=== PATIENT | male | born 1990 | race Caucasian/White ===

== ENCOUNTER 2018-05-31 06:23 | Emergency (ER) | payer SELFPAY ==
[2018-05-31] MEDS ORDERED: ALBUTEROL 2.5 MG/3 ML NEB SOL ONE (06:55)
[2018-05-31] MEDS ORDERED: IPRATROPIUM BROM 0.5MG/2.5ML ONE (06:55)
[2018-05-31] MEDS ORDERED: predniSONE 20 MG TAB ONE (06:55)
--- NOTE | 2018-05-31 07:55 | EDPHYS ---
Physician Documentation [facility] Name: Jony Flores Age: 28 yrs Sex: Male : 1990 Arrival Date: 05/31/2018 Time: 06:27 Bed 8 Private MD: ED Physician Cristobal William HPI: 05/31 07:02 This 28 yrs old Male presents to ER via Ambulatory with complaints of Asthma kb Exacerbation. 07:02 The patient presents to the emergency department with wheezing, Current therapy: kb albuterol inhaler. Onset: The symptoms/episode began/occurred this morning. Modifying factors: The symptoms are alleviated by nothing, the symptoms are aggravated by nothing. Associated signs and symptoms: The patient has no apparent associated signs or symptoms. Severity of symptoms: At their worst the symptoms were moderate in the emergency department the symptoms are unchanged. The patient has experienced similar episodes in the past. The patient has not recently seen a physician. Pt states he woke up having an asthma attack. Normally uses albuterol inhaler, but he couldn't find it this morning. Historical: - Allergies: 06:40 No Known Allergies; jd3 - Home Meds: 06:40 Albuterol Inhl [Active]; jd3 - PMHx: 06:40 Asthma; jd3 - PSHx: 06:40 None; jd3 - Immunization history:: Adult Immunizations up to date. - Social history:: Smoking status: Patient uses tobacco products, denies chronic smoking, but will smoke occasionally. - Ebola Screening: : Patient negative for fever greater than or equal to 101.5 degrees Fahrenheit, and additional compatible Ebola Virus Disease symptoms. ROS: 07:01 Constitutional: Negative for fever, chills, and weight loss, ENT: Negative for injury, kb pain, and discharge, Neck: Negative for injury, pain, and swelling, Cardiovascular: Negative for chest pain, palpitations, and edema, Abdomen/GI: Negative for abdominal pain, nausea, vomiting, diarrhea, and constipation, Back: Negative for injury and pain, MS/Extremity: Negative for injury and deformity, Skin: Negative for injury, rash, and discoloration, Neuro: Negative for headache, weakness, numbness, tingling, and seizure. 07:01 Respiratory: Positive for shortness of breath, Negative for cough, dyspnea on exertion, hemoptysis, orthopnea, pleurisy, sputum production. Exam: 07:01 Constitutional: This is a well developed, well nourished patient who is awake, alert, kb and in no acute distress. Head/Face: Normocephalic, atraumatic. Chest/axilla: Normal chest wall appearance and motion. Nontender with no deformity. No lesions are appreciated. Cardiovascular: Regular rate and rhythm with a normal S1 and S2. No gallops, murmurs, or rubs. Normal PMI, no JVD. No pulse deficits. Respiratory: Lungs have equal breath sounds bilaterally, clear to auscultation and percussion. No rales, rhonchi or wheezes noted. No increased work of breathing, no retractions or nasal flaring. Abdomen/GI: Soft, non-tender, with normal bowel sounds. No distension or tympany. No guarding or rebound. No evidence of tenderness throughout. Back: No spinal tenderness. No costovertebral tenderness. Full range of motion. Skin: Warm, dry with normal turgor. Normal color with no rashes, no lesions, and no evidence of cellulitis. MS/ Extremity: Pulses equal, no cyanosis. Neurovascular intact. Full, normal range of motion. Neuro: Awake and alert, GCS 15, oriented to person, place, time, and situation. Cranial nerves II-XII grossly intact. Motor strength 5/5 in all extremities. Sensory grossly intact. Cerebellar exam normal. Normal gait. Vital Signs: 06:40 BP 138 / 69; Pulse 78; Resp 20 S; Temp 97.6(O); Pulse Ox 98% on R/A; Weight 70.31 kg jd3 (R); Height 6 ft. 0 in. (182.88 cm) (R); Pain 0/10; 07:49 BP 121 / 76; Pulse 82; Resp 18; Pulse Ox 100% on R/A; sv 08:08 BP 115 / 73; Pulse 80; Resp 18; Pulse Ox 100% ; sv 06:40 Body Mass Index 21.02 (70.31 kg, 182.88 cm) jd3 MDM: 06:36 Patient medically screened. kb 07:01 Data reviewed: vital signs, nurses notes. Data interpreted: Pulse oximetry: on room air kb is 98 %. Interpretation: normal. 07:54 Counseling: I had a detailed discussion with the patient and/or guardian regarding: the kb historical points, exam findings, and any diagnostic results supporting the discharge/admit diagnosis, the need for outpatient follow up, a family practitioner, to return to the emergency department if symptoms worsen or persist or if there are any questions or concerns that arise at home. Response to treatment: the patient's symptoms have resolved after treatment. Administered Medications: 06:51 Drug: predniSONE 40 mg Route: PO; jd3 07:19 Follow up: Response: No adverse reaction sv 06:51 Drug: DuoNeb (3:1) (2.5 mg - 0.5 mg) 3 ml Route: Nebulizer; jd3 07:19 Follow up: Response: No adverse reaction sv Disposition: 08:54 Co-signature as Attending Physician, Cristobal William MD I agree with the assessment and kdr plan of care. Disposition: 05/31/18 07:54 Discharged to Home. Impression: Unspecified asthma with (acute) exacerbation. - Condition is Stable. - Discharge Instructions: Asthma, Adult, [id number]. - Prescriptions for Prednisone 20 mg Oral Tablet - take 1 tablet by ORAL route once daily for 5 days; 5 tablet. Albuterol Sulfate 90 mcg/actuation - inhale 1-2 puff by INHALATION route every 4-6 hours; 1 Inhaler. - Medication Reconciliation Form, Thank You Letter, Antibiotic Education, Prescription Opioid Use, Work release form form. - Follow up: Emergency Department; When: As needed; Reason: Worsening of condition. Follow up: Private Physician; When: 2 - 3 days; Reason: Recheck today's complaints, Continuance of care, Re-evaluation by your physician. Signatures: Stacey Paz FNP-C FNP-Charlee Cates RN RN Cristobal Plummer MD MD kdr Davies, Jonathon RN RN jd3 Corrections: (The following items were deleted from the chart) 08:09 07:54 05/31/2018 07:54 Discharged to Home. Impression: Unspecified asthma with (acute) sv exacerbation. Condition is Stable. Forms are Medication Reconciliation Form, Thank You Letter, Antibiotic Education, Prescription Opioid Use. Follow up: Emergency Department; When: As needed; Reason: Worsening of condition. Follow up: Private Physician; When: 2 - 3 days; Reason: Recheck today's complaints, Continuance of care, Re-evaluation by your physician. kb
--- NOTE | 2018-05-31 07:55 | ER ---
Nurse's Notes [facility] Name: Jony Flores Age: 28 yrs Sex: Male : 1990 Arrival Date: 05/31/2018 Time: 06:27 Bed 8 Private MD: Diagnosis: Unspecified asthma with (acute) exacerbation Presentation: 05/31 06:38 Presenting complaint: Patient states: "I am starting to have an asthma attack.". jd3 Transition of care: patient was not received from another setting of care. Onset of symptoms was May 31, 2018. Risk Assessment: Do you want to hurt yourself or someone else? Patient reports no desire to harm self or others. Initial Sepsis Screen: Does the patient meet any 2 criteria? No. Patient's initial sepsis screen is negative. Does the patient have a suspected source of infection? No. Patient's initial sepsis screen is negative. Care prior to arrival: None. 06:38 Method Of Arrival: Ambulatory jd3 06:38 Acuity: SHAHZAD 4 jd3 Historical: - Allergies: 06:40 No Known Allergies; jd3 - Home Meds: 06:40 Albuterol Inhl [Active]; jd3 - PMHx: 06:40 Asthma; jd3 - PSHx: 06:40 None; jd3 - Immunization history:: Adult Immunizations up to date. - Social history:: Smoking status: Patient uses tobacco products, denies chronic smoking, but will smoke occasionally. - Ebola Screening: : Patient negative for fever greater than or equal to 101.5 degrees Fahrenheit, and additional compatible Ebola Virus Disease symptoms. Screenin:42 Abuse screen: Denies threats or abuse. Nutritional screening: No deficits noted. jd3 Tuberculosis screening: No symptoms or risk factors identified. Fall Risk Ambulatory Aid- None/Bed Rest/Nurse Assist (0 pts). Gait- Normal/Bed Rest/Wheelchair (0 pts) Mental Status- Oriented to own ability (0 pts). Total Garay Fall Scale indicates No Risk (0-24 pts). Assessment: 06:41 General: Appears uncomfortable, Behavior is calm, cooperative, appropriate for age. jd3 Pain: Complains of pain in chest Pain currently is 0 out of 10 on a pain scale. Quality of pain is described as pressure. Neuro: Level of Consciousness is awake, alert, obeys commands, Oriented to person, place, time, situation. Cardiovascular: Heart tones S1 S2 present Capillary refill < 3 seconds Patient's skin is warm and dry. Respiratory: Airway is patent Respiratory effort is even, unlabored, Respiratory pattern is regular, symmetrical, Breath sounds with wheezes bilaterally. the patient has mild shortness of breath. GI: No signs and/or symptoms were reported involving the gastrointestinal system. : No signs and/or symptoms were reported regarding the genitourinary system. EENT: No signs and/or symptoms were reported regarding the EENT system. Derm: Skin is intact, Skin is dry, Skin is normal, Skin temperature is warm. Musculoskeletal: Circulation, motion, and sensation intact. Range of motion: intact in all extremities. 07:19 General: Appears comfortable, Behavior is calm, cooperative, appropriate for age. sv Neuro: Level of Consciousness is awake, alert, obeys commands, Oriented to person, place, time, situation, Moves all extremities. Full function Gait is steady. Respiratory: Respiratory effort is even, unlabored, Respiratory pattern is regular, symmetrical, Breath sounds are clear bilaterally. Breath sounds are diminished in left posterior lower lobe and right posterior lower lobe the patient reports symptoms have resolved. 08:08 Reassessment: Patient appears in no apparent distress at this time. Patient and/or sv family updated on plan of care and expected duration. Pain level reassessed. Patient is alert, oriented x 3, equal unlabored respirations, skin warm/dry/pink. Patient states feeling better. Patient states symptoms have improved. Vital Signs: 06:40 BP 138 / 69; Pulse 78; Resp 20 S; Temp 97.6(O); Pulse Ox 98% on R/A; Weight 70.31 kg jd3 (R); Height 6 ft. 0 in. (182.88 cm) (R); Pain 0/10; 07:49 BP 121 / 76; Pulse 82; Resp 18; Pulse Ox 100% on R/A; sv 08:08 BP 115 / 73; Pulse 80; Resp 18; Pulse Ox 100% ; sv 06:40 Body Mass Index 21.02 (70.31 kg, 182.88 cm) jd3 ED Course: 06:27 Patient arrived in ED. es 06:35 Stacey Paz [facility]-C [facility]. kb 06:36 Quique Rouse MD is Attending Physician. kb 06:38 Artis Whittington, JEAN-PIERRE is Primary Nurse. jd3 06:39 Triage completed. jd3 06:41 Arm band placed on. jd3 06:42 Patient has correct armband on for positive identification. Bed in low position. Call jd3 light in reach. Side rails up X 1. 06:55 Cristobal William MD is Attending Physician. kb 07:09 Primary Nurse role handed off by Artis Whittington RN sg 07:09 Roger Huynh, RN is Primary Nurse. sg 07:18 Primary Nurse role handed off by Roger Huynh, JEAN-PIERRE sv 07:18 Charlee Freitas, JEAN-PIERRE is Primary Nurse. sv 08:08 No provider procedures requiring assistance completed. Patient did not have IV access sv during this emergency room visit. Administered Medications: 06:51 Drug: predniSONE 40 mg Route: PO; jd3 07:19 Follow up: Response: No adverse reaction sv 06:51 Drug: DuoNeb (3:1) (2.5 mg - 0.5 mg) 3 ml Route: Nebulizer; jd3 07:19 Follow up: Response: No adverse reaction sv Outcome: 07:54 Discharge ordered by MD. kb 08:09 Discharged to home ambulatory. sv 08:09 Condition: stable 08:09 Discharge instructions given to patient, Instructed on discharge instructions, follow up and referral plans. medication usage, Demonstrated understanding of instructions, follow-up care, medications, Prescriptions given X 2. 08:09 Patient left the ED. sv Signatures: Stacey Paz, MANAGER SQL-C MANAGER SQL-Ckb Charlee Freitas RN RN Roger Huynh, JEAN-PIERRE RN Sophia Knowles Jonathon, JEAN-PIERRE RN jd3 Corrections: (The following items were deleted from the chart) 06:43 06:41 Respiratory: Airway is patent Respiratory effort is even, unlabored, Respiratory jd3 pattern is regular, symmetrical, Breath sounds with wheezes bilaterally. jd3
[2018-05-31 08:17] VITALS: TEMP 97.6
[2018-05-31 08:18] VITALS: O2SAT 100
[2018-05-31 08:19] VITALS: BP 115/73
== END 2018-05-31 08:09 | disposition home or self-care (01) ==
LOC: ER 06:23
DX: J45.901 Unspecified asthma with (acute) exacerbation (principal)
CPT/HCPCS: 94640; 99284; J7512

== ENCOUNTER 2019-01-14 06:48 | Emergency (ER) | payer SELFPAY ==
[2019-01-14] MEDS ORDERED: ALBUTEROL 2.5 MG/3 ML NEB SOL ONE (07:38)
[2019-01-14] MEDS ORDERED: dexAMETHasone 10 MG/ML VIAL ONE (07:38)
[2019-01-14] MEDS ORDERED: DIPHENHYDRAMINE 12.5MG/5ML LIQ ONE (07:39)
--- NOTE | 2019-01-14 08:26 | ER ---
Nurse's Notes [facility] Name: Jony Flores Age: 28 yrs Sex: Male : 1990 Arrival Date: 01/14/2019 Time: 06:51 Bed 5 Private MD: Diagnosis: Unspecified asthma with (acute) exacerbation Presentation: 01/14 06:56 Presenting complaint: Patient states: Reports SOB that started at 6 AM. States " I am ea allergic to dogs and was at a persons house who has dogs". Transition of care: patient was not received from another setting of care. Onset of symptoms was January 14, 2019. Risk Assessment: Do you want to hurt yourself or someone else? Patient reports no desire to harm self or others. Initial Sepsis Screen: Does the patient meet any 2 criteria? No. Patient's initial sepsis screen is negative. Does the patient have a suspected source of infection? No. Patient's initial sepsis screen is negative. Care prior to arrival: None. 06:56 Method Of Arrival: Ambulatory ea 06:56 Acuity: SHAHZAD 3 ea Triage Assessment: 07:01 General: Appears uncomfortable, Behavior is calm, cooperative, appropriate for age. ea Pain: Denies pain. Respiratory: Reports shortness of breath Breath sounds with wheezes bilaterally. Onset: The symptoms/episode began/occurred this morning, the patient has mild shortness of breath. Historical: - Allergies: 07:00 No Known Allergies; ea - Home Meds: 07:00 Albuterol Inhl [Active]; ea - PMHx: 07:00 Asthma; ea - PSHx: 07:00 None; ea - Immunization history:: Adult Immunizations up to date. - Social history:: Smoking status: Patient/guardian denies using tobacco. - Ebola Screening: : No symptoms or risks identified at this time. Screenin:00 Abuse screen: Denies threats or abuse. Nutritional screening: No deficits noted. ea Tuberculosis screening: No symptoms or risk factors identified. Fall Risk None identified. 07:00 Abuse screen: Denies threats or abuse. Nutritional screening: No deficits noted. tw2 Tuberculosis screening: No symptoms or risk factors identified. Fall Risk None identified. Assessment: 07:00 General: RECD REPORT FROM RINA MOREJON. 28YO WM P/W ASTHMA EXACERBATION AND WHEEZING.. bp Cardiovascular: Rhythm is sinus rhythm NO ECTOPY. Respiratory: Airway is patent Respiratory effort is even, unlabored, Respiratory pattern is regular, symmetrical, Breath sounds with wheezes. 08:10 Reassessment: Patient appears in no apparent distress at this time. Patient and/or tw2 family updated on plan of care and expected duration. Pain level reassessed. Patient is alert, oriented x 3, equal unlabored respirations, skin warm/dry/pink. 08:26 Reassessment: PT D/C HOME AMBULATORY, DX WITH ASTHMA EXACERBATION. bp Vital Signs: 07:00 BP 128 / 70; Pulse 63; Resp 18; Temp 98.5; Pulse Ox 100% on R/A; Weight 70.31 kg; ea Height 6 ft. 0 in. (182.88 cm); 08:10 BP 118 / 70; Pulse 56; Resp 17; Pulse Ox 99% on R/A; tw2 07:00 Body Mass Index 21.02 (70.31 kg, 182.88 cm) ea ED Course: 06:51 Patient arrived in ED. ag3 06:58 Bere Steiner, JEAN-PIERRE is Primary Nurse. tw2 07:00 Triage completed. ea 07:00 Arm band placed on. tw2 07:00 Bed in low position. Call light in reach. tw2 07:15 Marietta Monroy FNP-C is [facility]. snw 07:15 Quique Rouse MD is Attending Physician. snw 07:25 Attending Physician role handed off by Quique Rouse MD myra 07:25 Seth Wynne MD is Attending Physician. myra 08:25 No provider procedures requiring assistance completed. Patient did not have IV access bp during this emergency room visit. Administered Medications: 07:43 Drug: Decadron - Dexamethasone 10 mg {Note: PO per providers order.} Route: IVP; Site: tw2 Other; 08:25 Follow up: Response: No adverse reaction bp 07:43 Drug: Benadryl 3 tsp Route: PO; tw2 08:25 Follow up: Response: No adverse reaction bp 07:43 Drug: Albuterol 2.5 mg Route: Inhalation; tw2 Outcome: 08:19 Discharge ordered by . snw 08:26 Discharged to home ambulatory. tw2 08:26 Condition: stable 08:26 Discharge instructions given to patient, Instructed on discharge instructions, follow up and referral plans. medication usage, Demonstrated understanding of instructions, follow-up care, medications, Prescriptions given X 3. 08:27 Patient left the ED. tw2 Signatures: Seth Wynne MD MD cha Therrien, Shelly, USER ACCEPTANCE TESTER-C USER ACCEPTANCE TESTER-Csnw Bere Steiner RN RN tw2 Rina Modi, RN RN Cliff Seymour, RN RN bp Kaitlin Cottrell ag3 Ray Andrade RN RN rr5 Corrections: (The following items were deleted from the chart) 07:10 07:00 General: RECD REPORT FROM RINA MOREJON. 28YO WM P/W ASTHMA EXACERBATION AND WHEEZING. bp rr5 07: 07:00 Cardiovascular: Rhythm is sinus rhythm rr5 bp 07:10 07:00 Respiratory: Airway is patent Respiratory effort is even, unlabored, Breath bp sounds with wheezes rr5 08:26 08:25 Reassessment: bp bp
--- NOTE | 2019-01-14 08:27 | EDPHYS ---
Physician Documentation [facility] Name: Jony Flores Age: 28 yrs Sex: Male : 1990 Arrival Date: 01/14/2019 Time: 06:51 Bed 5 Private MD: ED Physician Seth Wynne HPI: 01/14 07:29 This 28 yrs old Male presents to ER via Ambulatory with complaints of snw Breathing Difficulty. 07:29 The patient has shortness of breath at rest. Onset: The symptoms/episode began/occurred snw suddenly, today. Duration: The symptoms are continuous, and are unchanged since they started. Associated signs and symptoms: Pertinent positives: This patient does not have any pertinent positive signs or symptoms associated with shortness of breath. Severity of symptoms: At their worst the symptoms were moderate. The patient has experienced similar episodes in the past. The patient has not recently seen a physician. feels s/s were exacerbated by contact with allergen - dog. Historical: - Allergies: 07:00 No Known Allergies; ea - Home Meds: 07:00 Albuterol Inhl [Active]; ea - PMHx: 07:00 Asthma; ea - PSHx: 07:00 None; ea - Immunization history:: Adult Immunizations up to date. - Social history:: Smoking status: Patient/guardian denies using tobacco. - Ebola Screening: : No symptoms or risks identified at this time. ROS: 07:28 Constitutional: Negative for fever, chills, and weight loss, Eyes: Negative for injury, snw pain, redness, and discharge, ENT: Negative for injury, pain, and discharge, Neck: Negative for injury, pain, and swelling, Cardiovascular: Negative for chest pain, palpitations, and edema, Abdomen/GI: Negative for abdominal pain, nausea, vomiting, diarrhea, and constipation, Back: Negative for injury and pain, : Negative for injury, bleeding, discharge, and swelling, MS/Extremity: Negative for injury and deformity, Skin: Negative for injury, rash, and discoloration, Neuro: Negative for headache, weakness, numbness, tingling, and seizure, Psych: Negative for depression, anxiety, suicide ideation, homicidal ideation, and hallucinations. 07:28 Respiratory: Positive for shortness of breath, at rest. wheezing. Exam: 07:27 Constitutional: This is a well developed, well nourished patient who is awake, alert, snw and in no acute distress. Head/Face: Normocephalic, atraumatic. Eyes: Pupils equal round and reactive to light, extra-ocular motions intact. Lids and lashes normal. Conjunctiva and sclera are non-icteric and not injected. Cornea within normal limits. Periorbital areas with no swelling, redness, or edema. ENT: Nares patent. No nasal discharge, no septal abnormalities noted. Tympanic membranes are normal and external auditory canals are clear. Oropharynx with no redness, swelling, or masses, exudates, or evidence of obstruction, uvula midline. Mucous membranes moist. Neck: Trachea midline, no thyromegaly or masses palpated, and no cervical lymphadenopathy. Supple, full range of motion without nuchal rigidity, or vertebral point tenderness. No Meningismus. Chest/axilla: Normal chest wall appearance and motion. Nontender with no deformity. No lesions are appreciated. Cardiovascular: Regular rate and rhythm with a normal S1 and S2. No gallops, murmurs, or rubs. Normal PMI, no JVD. No pulse deficits. Abdomen/GI: Soft, non-tender, with normal bowel sounds. No distension or tympany. No guarding or rebound. No evidence of tenderness throughout. Back: No spinal tenderness. No costovertebral tenderness. Full range of motion. Skin: Warm, dry with normal turgor. Normal color with no rashes, no lesions, and no evidence of cellulitis. MS/ Extremity: Pulses equal, no cyanosis. Neurovascular intact. Full, normal range of motion. Neuro: Awake and alert, GCS 15, oriented to person, place, time, and situation. Cranial nerves II-XII grossly intact. Motor strength 5/5 in all extremities. Sensory grossly intact. Cerebellar exam normal. Normal gait. Psych: Awake, alert, with orientation to person, place and time. Behavior, mood, and affect are within normal limits. 07:27 Respiratory: the patient does not display signs of respiratory distress, Respirations: shallow respirations, splinting, that is moderate, Breath sounds: are clear throughout. Vital Signs: 07:00 BP 128 / 70; Pulse 63; Resp 18; Temp 98.5; Pulse Ox 100% on R/A; Weight 70.31 kg; ea Height 6 ft. 0 in. (182.88 cm); 08:10 BP 118 / 70; Pulse 56; Resp 17; Pulse Ox 99% on R/A; tw2 07:00 Body Mass Index 21.02 (70.31 kg, 182.88 cm) ea MDM: 07:25 Patient medically screened. [facility] 08:20 Data reviewed: vital signs, nurses notes. Data interpreted: Pulse oximetry: on room air snw is 99 %. Interpretation: normal. Counseling: I had a detailed discussion with the patient and/or guardian regarding: the historical points, exam findings, and any diagnostic results supporting the discharge/admit diagnosis, the need for outpatient follow up, to return to the emergency department if symptoms worsen or persist or if there are any questions or concerns that arise at home. Response to treatment: the patient's symptoms have markedly improved after treatment. Special discussion: Based on the history and exam findings, there is no indication for further emergent testing or inpatient evaluation. I discussed with the patient/guardian the need to see the veterinary medicine scientist for further evaluation of the symptoms. I discussed with the patient/guardian the need to see the primary care provider for further evaluation of the symptoms. Administered Medications: 07:43 Drug: Decadron - Dexamethasone 10 mg {Note: PO per providers order.} Route: IVP; Site: 2 Other; 08:25 Follow up: Response: No adverse reaction bp 07:43 Drug: Benadryl 3 tsp Route: PO; tw2 08:25 Follow up: Response: No adverse reaction bp 07:43 Drug: Albuterol 2.5 mg Route: Inhalation; tw2 Disposition: 08:42 Co-signature as Attending Physician, Seth Wynne MD I agree with the assessment and [facility] plan of care. Disposition: 01/14/19 08:19 Discharged to Home. Impression: Unspecified asthma with (acute) exacerbation. - Condition is Stable. - Discharge Instructions: Asthma, Adult, Form - Asthma Action Plan, Adult. - Prescriptions for Zyrtec 10 mg Oral Tablet - take 1 tablet by ORAL route once daily As needed; 20 tablet. Prednisone 20 mg Oral Tablet - take 2 tablet by ORAL route once daily for 5 days; 10 tablet. Albuterol Sulfate 90 mcg/actuation - inhale 1-2 puff by INHALATION route every 4-6 hours; 1 Inhaler. - Medication Reconciliation Form, Thank You Letter, Antibiotic Education, Prescription Opioid Use, Work release form form. - Follow up: Private Physician; When: 2 - 3 days; Reason: Recheck today's complaints, Continuance of care, Re-evaluation by your physician. Follow up: Emergency Department; When: As needed; Reason: Worsening of condition. Signatures: Seth Wynne MD MD cha Therrien, Shelly, FLAT SPRING ASSEMBLER-C FLAT SPRING ASSEMBLER-Csnw Bere Steiner RN RN tw2 Rina Modi RN RN ea Peltier, Brian RN bp Corrections: (The following items were deleted from the chart) 08:27 08:19 01/14/2019 08:19 Discharged to Home. Impression: Unspecified asthma with (acute) tw2 exacerbation. Condition is Stable. Forms are Work release form, Medication Reconciliation Form, Thank You Letter, Antibiotic Education, Prescription Opioid Use. Follow up: Private Physician; When: 2 - 3 days; Reason: Recheck today's complaints, Continuance of care, Re-evaluation by your physician. Follow up: Emergency Department; When: As needed; Reason: Worsening of condition. snw
[2019-01-14 09:00] VITALS: BP 118/70; O2SAT 99
[2019-01-14 09:02] VITALS: TEMP 98.5
== END 2019-01-14 08:27 | disposition home or self-care (01) ==
LOC: ER 06:48
DX: J45.901 Unspecified asthma with (acute) exacerbation (principal)
CPT/HCPCS: 96374; 99284; J1100

== ENCOUNTER 2019-04-02 18:04 | Emergency (ER) | payer SELFPAY ==
[2019-04-02 21:39] LABS: Absolute Lymphocytes (CBC) 1.6 K/uL (0.7-4.9); Basophils % 0.4 % (0-1.3); Hematocrit 41.8 % (39.6-49.0); Lymphocytes % 19.3 % (15.3-44.8); RBC Red Blood Cell Count 4.81 M/uL (4.33-5.43)
[2019-04-02] MEDS ORDERED: NA CHLORIDE 0.9% 1,000 ML ONE (21:46)
[2019-04-02] MEDS ORDERED: ONDANSETRON 4 MG/2 ML VIAL ONE (21:46)
[2019-04-02 21:51] LABS: ALT/SGPT 35 U/L (12-78); AST/SGOT 15 U/L (15-37); Albumin 4.2 g/dL (3.4-5.0); Alkaline Phosphatase 91 U/L (45-117); BUN Blood Urea Nitrogen 14 mg/dL (7-18); Bicarbonate 28 mmol/L (21-32); Bilirubin Direct 0.2 mg/dL (0-0.2); Bilirubin Total 0.7 mg/dL (0.2-1.0); Glucose Level 87 mg/dL (74-106); Lipase 91 U/L (73-393); Potassium 3.8 mmol/L (3.5-5.1); Protein, Total 7.2 g/dL (6.4-8.2); Sodium Level 138 mmol/L (136-145)
--- NOTE | 2019-04-03 00:06 | EDPHYS ---
Physician Documentation [facility] Name: Jony Flores Age: 28 yrs Sex: Male : 1990 Arrival Date: 04/02/2019 Time: 18:07 Bed 20 Private MD: ED Physician Charles Salazar HPI: 04/03 06:22 This 28 yrs old Male presents to ER via Ambulatory with complaints of tw4 Diarrhea, Vomiting. 06:22 The patient presents to the emergency department with nausea, vomiting, diarrhea. tw4 Onset: The symptoms/episode began/occurred today. Possible causes: unknown. The symptoms are aggravated by nothing. Severity of symptoms: At their worst the symptoms were. The patient has not experienced similar symptoms in the past. Historical: - Allergies: 04/02 18:49 No Known Allergies; aj1 - Home Meds: 18:49 Albuterol Inhl [Active]; aj1 - PMHx: 18:49 Asthma; aj1 - PSHx: 18:49 None; aj1 - Immunization history:: Flu vaccine is not up to date. - Social history:: Smoking status: Patient uses tobacco products, denies chronic smoking, but will smoke occasionally. - Ebola Screening: : Patient denies travel to an Ebola-affected area in the 21 days before illness onset. ROS: 04/03 06:22 Constitutional: Negative for fever, chills, and weight loss, Eyes: Negative for injury, tw4 pain, redness, and discharge. Back: Negative for injury and pain, MS/Extremity: Negative for injury and deformity, Skin: Negative for injury, rash, and discoloration, Neuro: Negative for headache, weakness, numbness, tingling, and seizure. Abdomen/GI: Positive for abdominal pain, nausea and vomiting, nausea, vomiting, and diarrhea, nausea, Negative for abdominal cramps, abdominal distension, anorexia. Exam: 06:22 Constitutional: This is a well developed, well nourished patient who is awake, alert, tw4 and in no acute distress. Head/Face: Normocephalic, atraumatic. Chest/axilla: Normal chest wall appearance and motion. Nontender with no deformity. No lesions are appreciated. Cardiovascular: Regular rate and rhythm with a normal S1 and S2. No gallops, murmurs, or rubs. Normal PMI, no JVD. No pulse deficits. Respiratory: Lungs have equal breath sounds bilaterally, clear to auscultation and percussion. No rales, rhonchi or wheezes noted. No increased work of breathing, no retractions or nasal flaring. 06:22 MS/ Extremity: Pulses equal, no cyanosis. Neurovascular intact. Full, normal range of motion. Neuro: Awake and alert, GCS 15, oriented to person, place, time, and situation. Cranial nerves II-XII grossly intact. Motor strength 5/5 in all extremities. Sensory grossly intact. Cerebellar exam normal. Normal gait. 06:22 Abdomen/GI: Inspection: abdomen appears normal, Bowel sounds: normal, in the epigastric area, right upper quadrant, left upper quadrant, right lower quadrant and left lower quadrant. Vital Signs: 04/02 18:49 BP 134 / 82; Pulse 88; Resp 18; Temp 99.2; Pulse Ox 100% on R/A; Weight 68.04 kg (R); aj1 Height 6 ft. 0 in. (182.88 cm) (R); Pain 4/10; 18:49 Body Mass Index 20.34 (68.04 kg, 182.88 cm) aj1 MDM: 20:57 Patient medically screened. tw4 04/03 06:22 Differential diagnosis: Nonspecific abd pain, gastritis, cholecystitis, pancreatitis. tw4 Data reviewed: vital signs, nurses notes. Data reviewed: lab test result(s), CBC, white blood cell count, hemoglobin, hematocrit, platelets, electrolytes, sodium, potassium, chloride, serum bicarbonate, BUN, creatinine, serum glucose, hepatic panel, radiologic studies. Data interpreted: Pulse oximetry: is not applicable for this patient encounter. Counseling: I had a detailed discussion with the patient and/or guardian regarding: the historical points, exam findings, and any diagnostic results supporting the discharge/admit diagnosis. Special discussion: I discussed with the patient/guardian in detail that at this point there is no indication for admission to the hospital. It is understood, however, that if the symptoms persist or worsen the patient needs to return immediately for re-evaluation. 04/02 20:04 Order name: Basic Metabolic Panel; Complete Time: 00:03 tw4 04/03 00:03 Interpretation: Normal except: CA 8.4. tw4 04/02 20:04 Order name: CBC with Diff; Complete Time: 00:03 tw4 04/03 00:03 Interpretation: Within normal limits. tw4 04/02 20:04 Order name: Creatinine for Radiology; Complete Time: 00:03 4 04/03 00:03 Interpretation: Within normal limits: CRE 0.95. tw4 04/02 20:04 Order name: Hepatic Function; Complete Time: 00:03 tw4 04/02 20:04 Order name: Lipase; Complete Time: 00:03 tw4 04/02 20:04 Order name: IV Saline Lock; Complete Time: 21:07 tw4 04/02 20:04 Order name: Labs collected and sent; Complete Time: 21:13 tw4 Administered Medications: 04/02 21:40 Drug: NS 0.9% 1000 ml Route: IV; Rate: 1000 ml; Site: right antecubital; cc3 21:40 Drug: Zofran 4 mg Route: IVP; Site: right antecubital; cc3 Disposition: 04/03/19 00:05 Discharged to Home. Impression: Other viral enteritis. - Condition is Stable. - Discharge Instructions: Food Choices to Help Relieve Diarrhea, Adult, Viral Gastroenteritis, Adult, Diarrhea, Adult, [id number]. - Prescriptions for Zofran 4 mg Oral Tablet - take 1 tablet by ORAL route every 12 hours As needed; 6 tablet. Lomotil 2.5- 0.025 mg Oral Tablet - take 2 tablet by ORAL route once daily As needed; 20 tablet. - Medication Reconciliation Form, Thank You Letter, Antibiotic Education, Prescription Opioid Use form. - Follow up: Private Physician; When: Upon discharge from the Emergency Department; Reason: Recheck today's complaints, Continuance of care. - Problem is new. - Symptoms have improved. Signatures: Dispatcher [employer] EDMary Castañeda RN RN aj1 Charles Salazar MD MD tw4 Marielena Coley cc3 Corrections: (The following items were deleted from the chart) 04/03 00:19 00:05 04/03/2019 00:05 Discharged to Home. Impression: Other viral enteritis. Condition cc3 is Stable. Forms are Medication Reconciliation Form, Thank You Letter, Antibiotic Education, Prescription Opioid Use. Follow up: Private Physician; When: Upon discharge from the Emergency Department; Reason: Recheck today's complaints, Continuance of care. Problem is new. Symptoms have improved. tw4
--- NOTE | 2019-04-03 00:06 | ER ---
Nurse's Notes [facility] Name: Jony Flores Age: 28 yrs Sex: Male : 1990 Arrival Date: 04/02/2019 Time: 18:07 Bed 20 Private MD: Diagnosis: Other viral enteritis Presentation: 04/02 18:47 Presenting complaint: Patient states: "Monday morning I woke up and I had the runs and aj1 was throwing up, I felt fine the next day but I was still having trouble keeping food down. Today I noticed my stool is a really light color. Transition of care: patient was not received from another setting of care. Onset of symptoms was April 02, 2019. Risk Assessment: Do you want to hurt yourself or someone else? Patient reports no desire to harm self or others. Initial Sepsis Screen: Does the patient meet any 2 criteria? No. Patient's initial sepsis screen is negative. Does the patient have a suspected source of infection? Yes: Acute abdominal pain. Care prior to arrival: None. 18:47 Method Of Arrival: Ambulatory [facility] 18:47 Acuity: SHAHZAD 3 aj1 Triage Assessment: 18:49 General: Appears in no apparent distress. comfortable, Behavior is calm, cooperative, aj1 appropriate for age. Pain: Complains of pain in left lower quadrant. Pain: Pain currently is 4 out of 10 on a pain scale. Neuro: Level of Consciousness is awake, alert, obeys commands. Cardiovascular: Patient's skin is warm and dry. Respiratory: Airway is patent Respiratory effort is even, unlabored, Respiratory pattern is regular, symmetrical. GI: Reports diarrhea, vomiting. Historical: - Allergies: 18:49 No Known Allergies; aj1 - Home Meds: 18:49 Albuterol Inhl [Active]; aj1 - PMHx: 18:49 Asthma; aj1 - PSHx: 18:49 None; aj1 - Immunization history:: Flu vaccine is not up to date. - Social history:: Smoking status: Patient uses tobacco products, denies chronic smoking, but will smoke occasionally. - Ebola Screening: : Patient denies travel to an Ebola-affected area in the 21 days before illness onset. Vital Signs: 18:49 BP 134 / 82; Pulse 88; Resp 18; Temp 99.2; Pulse Ox 100% on R/A; Weight 68.04 kg (R); aj1 Height 6 ft. 0 in. (182.88 cm) (R); Pain 4/10; 18:49 Body Mass Index 20.34 (68.04 kg, 182.88 cm) aj1 ED Course: 18:07 Patient arrived in ED. as 18:49 Triage completed. aj1 18:49 Arm band placed on Patient placed in waiting room, Patient notified of wait time. aj1 20:01 Charles Salazar MD is Attending Physician. tw4 20:28 Marielena Coley is Primary Nurse. cc3 21:00 Inserted saline lock: 20 gauge in right antecubital area, using aseptic technique. cc3 Blood collected. Administered Medications: 21:40 Drug: NS 0.9% 1000 ml Route: IV; Rate: 1000 ml; Site: right antecubital; cc3 21:40 Drug: Zofran 4 mg Route: IVP; Site: right antecubital; cc3 Outcome: 04/03 00:05 Discharge ordered by . tw4 00:19 Patient left the ED. cc3 Signatures: Mary Soriano, RN RN aj1 Alley Bañuelos Terrence, MD MD tw4 Marielena Coley cc3
[2019-04-03 01:12] VITALS: BP 134/82; TEMP 99.2; O2SAT 100
== END 2019-04-03 00:19 | disposition home or self-care (01) ==
LOC: ER 18:04
DX: A08.39 Other viral enteritis (principal); J45.909 Unspecified asthma, uncomplicated; Z72.0 Tobacco use
CPT/HCPCS: 36415; 80048; 80076; 83690; 85025; 96374; 99283; J2405; J7030

== ENCOUNTER 2019-04-28 06:38 | Emergency (ER) | payer SELFPAY ==
[2019-04-28] MEDS ORDERED: METHYLPREDNISOLONE 125 MG INJ ONE (06:59)
[2019-04-28] MEDS ORDERED: ALBUTEROL 2.5 MG/3 ML NEB SOL ONE (06:59)
--- NOTE | 2019-04-28 07:55 | ER ---
Nurse's Notes [facility] Name: Jony Flores Age: 29 yrs Sex: Male : 1990 Arrival Date: 04/28/2019 Time: 06:39 Bed 4 Private MD: Diagnosis: Unspecified asthma with (acute) exacerbation Presentation: 04/28 06:52 Presenting complaint: Patient states: Patient woke up about 0600 and felt wheezing and lp1 shortness of breath, states bad habit of not keeping up with Albuterol inhaler. Transition of care: patient was not received from another setting of care. Onset of symptoms was April 28, 2019 at 06:00. Risk Assessment: Do you want to hurt yourself or someone else? Patient reports no desire to harm self or others. Initial Sepsis Screen: Does the patient meet any 2 criteria? No. Patient's initial sepsis screen is negative. Does the patient have a suspected source of infection? No. Patient's initial sepsis screen is negative. Care prior to arrival: None. 06:52 Method Of Arrival: Ambulatory lp1 06:52 Acuity: SHAHZAD 3 lp1 Historical: - Allergies: 06:54 No Known Allergies; lp1 - Home Meds: 06:54 Albuterol Inhl [Active]; lp1 - PMHx: 06:54 Asthma; lp1 - PSHx: 06:54 None; lp1 - Immunization history:: Adult Immunizations up to date. - Social history:: Smoking status: Patient/guardian denies using tobacco. - Ebola Screening: : No symptoms or risks identified at this time. Screenin:54 Abuse screen: Denies threats or abuse. Denies injuries from another. Nutritional lp1 screening: No deficits noted. Tuberculosis screening: No symptoms or risk factors identified. Fall Risk None identified. Assessment: 06:54 General: Appears in no apparent distress. Behavior is appropriate for age. Pain: Denies lp1 pain. Neuro: Level of Consciousness is awake, alert, obeys commands, Oriented to person, place, time, situation. Cardiovascular: Patient's skin is warm and dry. Respiratory: Airway is patent Trachea midline Respiratory effort is even, Respiratory pattern is regular, Breath sounds with wheezes bilaterally. GI: No signs and/or symptoms were reported involving the gastrointestinal system. : No signs and/or symptoms were reported regarding the genitourinary system. EENT: No signs and/or symptoms were reported regarding the EENT system. Derm: Skin is intact, Skin is dry, Skin is normal. Musculoskeletal: No deficits noted. 07:05 General: Appears in no apparent distress. comfortable, Behavior is calm, cooperative. rb1 Pain: Denies pain. Neuro: Level of Consciousness is awake, alert, obeys commands, Oriented to person, place, time, situation. Cardiovascular: Capillary refill < 3 seconds is brisk in bilateral fingers. Respiratory: Airway is patent Trachea midline Respiratory effort is even, unlabored, Respiratory pattern is regular, symmetrical. GI: No signs and/or symptoms were reported involving the gastrointestinal system. : No signs and/or symptoms were reported regarding the genitourinary system. Derm: Skin is pink, warm \T\ dry. Musculoskeletal: Range of motion: intact in all extremities. 07:47 Reassessment: Patient appears in no apparent distress at this time. No changes from tw2 previously documented assessment. Patient and/or family updated on plan of care and expected duration. Pain level reassessed. Patient is alert, oriented x 3, equal unlabored respirations, skin warm/dry/pink. 08:04 Reassessment: Patient appears in no apparent distress at this time. Patient denies pain rb1 at this time. Patient states feeling better. Patient states symptoms have improved. Vital Signs: 06:53 BP 129 / 91; Pulse 78; Resp 20; Temp 98.2(TE); Pulse Ox 98% on R/A; Weight 68.04 kg; lp1 Height 6 ft. 0 in. (182.88 cm); Pain 0/10; 07:47 BP 118 / 88; Pulse 66; Resp 17; Pulse Ox 100% on R/A; tw2 06:53 Body Mass Index 20.34 (68.04 kg, 182.88 cm) lp1 ED Course: 06:39 Patient arrived in ED. ds1 06:52 Richie Smith NP is PHCP. pm1 06:52 Quique Rouse MD is Attending Physician. pm1 06:53 Triage completed. lp1 06:53 Arm band placed on. lp1 06:55 Patient has correct armband on for positive identification. lp1 07:05 Patient has correct armband on for positive identification. Bed in low position. Call rb1 light in reach. Side rails up X 1. Pulse ox on. NIBP on. Warm blanket given. 07:44 Deborah Olsen, RN is Primary Nurse. rb1 08:05 No provider procedures requiring assistance completed. Patient did not have IV access rb1 during this emergency room visit. Administered Medications: 07:05 Drug: Albuterol 5 mg Route: Inhalation; lp1 07:05 Drug: SOLU-Medrol 125 mg Route: IM; Site: right deltoid; lp1 07:25 Follow up: Response: No adverse reaction rb1 Outcome: 07:54 Discharge ordered by MD. pm1 08:05 Discharged to home ambulatory. rb1 08:05 Condition: stable 08:05 Discharge instructions given to patient, Instructed on discharge instructions, follow up and referral plans. medication usage, Demonstrated understanding of instructions, follow-up care, medications, Prescriptions given X 2. 08:06 Patient left the ED. rb1 Signatures: Candi Calvillo ds1 Yazmin Amin RN RN lp1 Deborah Olsen, RN RN rb1 Richie Smith, HERB DOCTOR HERB DOCTOR pm1 Bere Steiner RN RN tw2
--- NOTE | 2019-04-28 07:56 | EDPHYS ---
Physician Documentation [facility] Name: Jony Flores Age: 29 yrs Sex: Male : 1990 Arrival Date: 04/28/2019 Time: 06:39 Bed 4 Private MD: ED Physician Quique Rouse HPI: 04/28 06:55 This 29 yrs old Male presents to ER via Ambulatory with complaints of Asthma pm1 Exacerbation. 06:55 The patient presents to the emergency department with wheezing, Current therapy: None, pm1 that began allergies, the patient was reported to have audible wheezing, shortness of breath, Pre-hospital care: none. Onset: The symptoms/episode began/occurred last night. Modifying factors: The symptoms are alleviated by nothing. Associated signs and symptoms: Pertinent negatives: chest pain, fever, rash, vomiting. Severity of symptoms: Pain is currently a 0 / 10. The patient has experienced similar episodes in the past, a few times. The patient has not recently seen a physician. Ran out of his inhaler many months ago. Historical: - Allergies: 06:54 No Known Allergies; lp1 - Home Meds: 06:54 Albuterol Inhl [Active]; lp1 - PMHx: 06:54 Asthma; lp1 - PSHx: 06:54 None; lp1 - Immunization history:: Adult Immunizations up to date. - Social history:: Smoking status: Patient/guardian denies using tobacco. - Ebola Screening: : No symptoms or risks identified at this time. ROS: 06:55 Constitutional: Negative for fever, chills, and weight loss, Eyes: Negative for injury, pm1 pain, redness, and discharge, ENT: Negative for injury, pain, and discharge, Neck: Negative for injury, pain, and swelling, Cardiovascular: Negative for chest pain, palpitations, and edema. 06:55 Abdomen/GI: Negative for abdominal pain, nausea, vomiting, diarrhea, and constipation, Back: Negative for injury and pain, : Negative for injury, bleeding, discharge, and swelling, MS/Extremity: Negative for injury and deformity, Skin: Negative for injury, rash, and discoloration, Neuro: Negative for headache, weakness, numbness, tingling, and seizure. 06:55 Respiratory: Positive for shortness of breath, wheezing, Negative for cough, dyspnea on exertion. Exam: 06:55 Constitutional: This is a well developed, well nourished patient who is awake, alert, pm1 and in no acute distress. Head/Face: Normocephalic, atraumatic. Eyes: Pupils equal round and reactive to light, extra-ocular motions intact. Lids and lashes normal. Conjunctiva and sclera are non-icteric and not injected. Cornea within normal limits. Periorbital areas with no swelling, redness, or edema. ENT: Nares patent. No nasal discharge, no septal abnormalities noted. Tympanic membranes are normal and external auditory canals are clear. Oropharynx with no redness, swelling, or masses, exudates, or evidence of obstruction, uvula midline. Mucous membranes moist. Neck: Trachea midline, no thyromegaly or masses palpated, and no cervical lymphadenopathy. Supple, full range of motion without nuchal rigidity, or vertebral point tenderness. No Meningismus. Chest/axilla: Normal chest wall appearance and motion. Nontender with no deformity. No lesions are appreciated. Cardiovascular: Regular rate and rhythm with a normal S1 and S2. No gallops, murmurs, or rubs. Normal PMI, no JVD. No pulse deficits. 06:55 Abdomen/GI: Soft, non-tender, with normal bowel sounds. No distension or tympany. No guarding or rebound. No evidence of tenderness throughout. Back: No spinal tenderness. No costovertebral tenderness. Full range of motion. Skin: Warm, dry with normal turgor. Normal color with no rashes, no lesions, and no evidence of cellulitis. MS/ Extremity: Pulses equal, no cyanosis. Neurovascular intact. Full, normal range of motion. Neuro: Awake and alert, GCS 15, oriented to person, place, time, and situation. Cranial nerves II-XII grossly intact. Motor strength 5/5 in all extremities. Sensory grossly intact. Cerebellar exam normal. Normal gait. 06:55 Respiratory: the patient does not display signs of respiratory distress, Respirations: normal, Breath sounds: wheezing: expiratory is heard diffusely. 07:53 Respiratory: the patient does not display signs of respiratory distress, Respirations: pm1 normal, Breath sounds: are clear throughout. Vital Signs: 06:53 BP 129 / 91; Pulse 78; Resp 20; Temp 98.2(TE); Pulse Ox 98% on R/A; Weight 68.04 kg; lp1 Height 6 ft. 0 in. (182.88 cm); Pain 0/10; 07:47 BP 118 / 88; Pulse 66; Resp 17; Pulse Ox 100% on R/A; tw2 06:53 Body Mass Index 20.34 (68.04 kg, 182.88 cm) lp1 MDM: 06:52 Patient medically screened. pm1 07:53 Data reviewed: vital signs. Data interpreted: Pulse oximetry: on room air is 100 %. pm1 Interpretation: normal. 07:53 Counseling: I had a detailed discussion with the patient and/or guardian regarding: the pm1 historical points, exam findings, and any diagnostic results supporting the discharge/admit diagnosis, the need for outpatient follow up, to return to the emergency department if symptoms worsen or persist or if there are any questions or concerns that arise at home. Administered Medications: 07:05 Drug: Albuterol 5 mg Route: Inhalation; lp1 07:05 Drug: SOLU-Medrol 125 mg Route: IM; Site: right deltoid; lp1 07:25 Follow up: Response: No adverse reaction rb1 Disposition: 04/28/19 07:54 Discharged to Home. Impression: Unspecified asthma with (acute) exacerbation. - Condition is Stable. - Discharge Instructions: Asthma, Adult, How to Use an Inhaler. - Prescriptions for Medrol (Jt) 4 mg Oral Tablets, Dose Pack - take 1 tablet by ORAL route as directed - follow package instructions; 1 packet. Albuterol Sulfate 90 mcg/actuation - inhale 1-2 puff by INHALATION route every 4-6 hours; 1 Inhaler. - Medication Reconciliation Form, Thank You Letter, Antibiotic Education, Prescription Opioid Use form. - Follow up: Emergency Department; When: As needed; Reason: Worsening of condition. Follow up: Private Physician; When: 2 - 3 days; Reason: Recheck today's complaints, Continuance of care, Re-evaluation by your physician. - Problem is new. - Symptoms have improved. Addendum: 04/30/2019 09:59 Co-signature as Attending Physician, Quique Rouse MD. r n Signatures: Quique Rouse MD MD rn Pena, Laura, RN RN lp1 Deborah Olsen RN RN Richie Waldrop NP CUTTER OPERATOR BRICK pm1 Corrections: (The following items were deleted from the chart) 04/28 08:06 07:54 04/28/2019 07:54 Discharged to Home. Impression: Unspecified asthma with (acute) rb1 exacerbation. Condition is Stable. Forms are Medication Reconciliation Form, Thank You Letter, Antibiotic Education, Prescription Opioid Use. Follow up: Emergency Department; When: As needed; Reason: Worsening of condition. Follow up: Private Physician; When: 2 - 3 days; Reason: Recheck today's complaints, Continuance of care, Re-evaluation by your physician. Problem is new. Symptoms have improved. pm1
[2019-04-28 08:10] VITALS: TEMP 98.2
[2019-04-28 08:11] VITALS: BP 118/88; O2SAT 100
== END 2019-04-28 08:06 | disposition home or self-care (01) ==
LOC: ER 06:38
DX: J45.901 Unspecified asthma with (acute) exacerbation (principal)
CPT/HCPCS: 96372; 99284; J2930

== ENCOUNTER 2021-10-26 06:40 | Emergency (ER) | payer SELFPAY ==
[2021-10-26 07:40] LABS: Absolute Lymphocytes (CBC) 1.3 K/uL (0.7-4.9); Lymphocytes % 27.7 % (15.3-44.8); MPV 7.6 fL (7.6-11.3); RBC Red Blood Cell Count 5.13 M/uL (4.33-5.43)
[2021-10-26] MEDS ORDERED: NA CHLORIDE 0.9% 1,000 ML ONE (07:40)
[2021-10-26] MEDS ORDERED: ONDANSETRON 4 MG/2 ML VIAL ONE (07:40)
[2021-10-26 07:59] LABS: Albumin 4.3 g/dL (3.4-5.0); Bilirubin Total 0.6 mg/dL (0.2-1.0); Potassium 3.9 mmol/L (3.5-5.1); Protein, Total 7.6 g/dL (6.4-8.2)
--- NOTE | 2021-10-26 09:13 | EDPHYS ---
Physician Documentation [facility] Name: Jony Flores Age: 31 yrs Sex: Male : 1990 Arrival Date: 10/26/2021 Time: 06:44 Bed 15 Private MD: ED Physician Quique Rouse HPI: 10/26 07:44 This 31 yrs old Male presents to ER via Ambulatory with complaints of Nausea, rn Fever. 07:44 The patient presents to the emergency department with nausea, vomiting. Onset: The rn symptoms/episode began/occurred yesterday. Possible causes: unknown. The symptoms are aggravated by nothing. The symptoms are alleviated by nothing. Associated signs and symptoms: Pertinent positives: nausea, vomiting, Pertinent negatives: abdominal pain, diarrhea, GI bleeding. Severity of symptoms: At their worst the symptoms were moderate in the emergency department the symptoms are unchanged. The patient has not experienced similar symptoms in the past. The patient has not recently seen a physician. Pt reports subjective fever and chills, assoc with nausea/vomiting, began a few days ago, no sick contacts, no abd pain. No diarrhea or blood in stool. . Historical: - Allergies: 07:06 No Known Allergies; ll1 - PMHx: 07:06 Asthma; ll1 - Immunization history:: Adult Immunizations up to date, Client reports having NOT received the Covid vaccine. Flu vaccine status is unknown. - Social history:: Smoking status: Patient denies any tobacco usage or history of. - Family history:: not pertinent. - Hospitalizations: : No recent hospitalization is reported. ROS: 07:44 Constitutional: + subjective fever and chills Eyes: Negative for injury, pain, redness, rn and discharge, ENT: Negative for injury, pain, and discharge, Cardiovascular: Negative for chest pain, palpitations, and edema, Respiratory: Negative for shortness of breath, cough, wheezing, and pleuritic chest pain, Abdomen/GI: + nausea/vomiting, neg for abd pain MS/Extremity: Negative for injury and deformity, Skin: Negative for injury, rash, and discoloration, Neuro: Negative for headache, weakness, numbness, tingling, and seizure. Exam: 07:44 Constitutional: This is a well developed, well nourished patient who is awake, alert, rn and in no acute distress. Head/Face: Normocephalic, atraumatic. Eyes: Periorbital areas with no swelling, redness, or edema. ENT: dry MM Cardiovascular: Regular rate and rhythm. No pulse deficits. Respiratory: No increased work of breathing, no retractions or nasal flaring. Abdomen/GI: Soft, non-tender Skin: Warm, dry MS/ Extremity: Pulses equal, no cyanosis. Neuro: Awake and alert, GCS 15 Vital Signs: 07:06 BP 125 / 75; Pulse 79; Resp 16; Temp 99.1(O); Pulse Ox 100% ; Weight 68.04 kg; Height 6 ll1 ft. 0 in. (182.88 cm); Pain 0/10; 08:10 BP 114 / 81; Pulse 58; Pulse Ox 100% ; ll1 09:15 BP 111 / 86; Pulse 58; Resp 15; Pulse Ox 100% on R/A; ll1 07:06 Body Mass Index 20.34 (68.04 kg, 182.88 cm) ll1 MDM: 06:57 Patient medically screened. rn 09:11 Differential diagnosis: viral gastroenteritis, gastroenteritis, COVID. Data reviewed: rn vital signs, nurses notes, lab test result(s), and as a result, I will discharge patient. Counseling: I had a detailed discussion with the patient and/or guardian regarding: the historical points, exam findings, and any diagnostic results supporting the discharge/admit diagnosis, lab results, the need for outpatient follow up, to return to the emergency department if symptoms worsen or persist or if there are any questions or concerns that arise at home. Response to treatment: the patient's symptoms have markedly improved after treatment, and as a result, I will discharge patient. Special discussion: I discussed with the patient/guardian in detail that at this point there is no indication for admission to the hospital. It is understood, however, that if the symptoms persist or worsen the patient needs to return immediately for re-evaluation. 10/26 07:19 Order name: SARS-COV-2 RT PCR (Document "Date of Onset" if Symptomatic); Complete Time: rn 09:13 10/26 07:19 Order name: Flu; Complete Time: 08:48 rn 10/26 07:19 Order name: CBC with Diff; Complete Time: 08:17 rn 10/26 07:19 Order name: CMP; Complete Time: 08:17 rn 10/26 07:19 Order name: Lipase; Complete Time: 08:17 rn 10/26 07:19 Order name: IV Saline Lock; Complete Time: 07:27 rn 10/26 07:19 Order name: Labs collected and sent; Complete Time: : rn Administered Medications: 07:39 Drug: Zofran (Ondansetron) 4 mg Route: IVP; Site: right antecubital; ll1 09:15 Follow up: Response: No adverse reaction 1 07:40 Drug: NS 0.9% 1000 ml Route: IV; Rate: 1 bolus; Site: right antecubital; ll1 09:15 Follow up: Response: No adverse reaction; IV Status: Completed infusion; IV Intake: ll1 1000ml Disposition Summary: 10/26/21 09:12 Discharge Ordered Location: Home rn Problem: new rn Symptoms: have improved rn Condition: Stable rn Diagnosis - Nausea with vomiting, unspecified rn - SARS-associated coronavirus as the cause of diseases classified elsewhere rn Followup: rn - With: Private Physician - When: As needed - Reason: Recheck today's complaints, Re-evaluation by your physician Discharge Instructions: - Discharge Summary Sheet rn - Nausea and Vomiting, Adult rn Forms: - Medication Reconciliation Form rn - Thank You Letter rn - Antibiotic international coordinator - Prescription Opioid Use rn - Work release form ll1 Prescriptions: - ondansetron 4 mg Oral tablet,disintegrating - place 1 tablet by TRANSLINGUAL route every 8 hours As needed; 10 tablet; rn Refills: 0, Product Selection Permitted Signatures: Dispatcher [employer] Quique Bergre MD MD rn Lewis, Lynsay RN RN 1
--- NOTE | 2021-10-26 09:13 | ER ---
Nurse's Notes [facility] Name: Jony Flores Age: 31 yrs Sex: Male : 1990 Arrival Date: 10/26/2021 Time: 06:44 Bed 15 Private MD: Diagnosis: Nausea with vomiting, unspecified;SARS-associated coronavirus as the cause of diseases classified elsewhere Presentation: 10/26 07:06 Chief complaint: Patient states: N/V with chills since yesterday. Coronavirus screen: ll1 Vaccine status: Patient reports being unvaccinated. Client denies travel out of the [place] in the last 14 days. fatigue, fever, nausea, sore throat, vomiting. Client presents with at least one sign or symptom that may indicate coronavirus-19. Standard/surgical mask placed on the client. Ebola Screen: Patient denies travel to an Ebola-affected area in the 21 days before illness onset. Initial Sepsis Screen: Does the patient meet any 2 criteria? No. Patient's initial sepsis screen is negative. Does the patient have a suspected source of infection? Yes: Productive cough/pneumonia. Risk Assessment: Do you want to hurt yourself or someone else? Patient reports no desire to harm self or others. Onset of symptoms was October 25, 2021. 07:06 Method Of Arrival: Ambulatory ll1 07:06 Acuity: SHAHZAD 4 ll1 Triage Assessment: 07:11 General: Appears in no apparent distress. Behavior is calm, cooperative, appropriate ll1 for age. Pain: Denies pain. EENT: Reports "scratchy throat". GI: Reports nausea, vomiting. Historical: - Allergies: 07:06 No Known Allergies; ll1 - PMHx: 07:06 Asthma; ll1 - Immunization history:: Adult Immunizations up to date, Client reports having NOT received the Covid vaccine. Flu vaccine status is unknown. - Social history:: Smoking status: Patient denies any tobacco usage or history of. - Family history:: not pertinent. - Hospitalizations: : No recent hospitalization is reported. Screenin:12 Abuse screen: Denies threats or abuse. Nutritional screening: No deficits noted. ll1 Tuberculosis screening: No symptoms or risk factors identified. 07:46 Fall Risk IV access (20 points). Total Garay Fall Scale indicates No Risk (0-24 pts). ll1 Assessment: 07:46 Reassessment: No changes from previously documented assessment. Patient and/or family ll1 updated on plan of care and expected duration. Pain level reassessed. Patient is alert, oriented x 3, equal unlabored respirations, skin warm/dry/pink. GI: Abdomen is flat, Bowel sounds present X 4 quads. Abd is soft and non tender X 4 quads. 08:10 Reassessment: No changes from previously documented assessment. Patient and/or family ll1 updated on plan of care and expected duration. Pain level reassessed. Patient is alert, oriented x 3, equal unlabored respirations, skin warm/dry/pink. 09:05 Reassessment: No changes from previously documented assessment. Patient and/or family ll1 updated on plan of care and expected duration. Pain level reassessed. Patient is alert, oriented x 3, equal unlabored respirations, skin warm/dry/pink. Patient states feeling better. Vital Signs: 07:06 BP 125 / 75; Pulse 79; Resp 16; Temp 99.1(O); Pulse Ox 100% ; Weight 68.04 kg; Height 6 ll1 ft. 0 in. (182.88 cm); Pain 0/10; 08:10 BP 114 / 81; Pulse 58; Pulse Ox 100% ; ll1 09:15 BP 111 / 86; Pulse 58; Resp 15; Pulse Ox 100% on R/A; ll1 07:06 Body Mass Index 20.34 (68.04 kg, 182.88 cm) ll1 ED Course: 06:44 Patient arrived in ED. ja2 06:57 Quique Rouse MD is Attending Physician. rn 07:05 Noni Delcid, JEAN-PIERRE is Primary Nurse. ll1 07:05 Arm band placed on Patient placed in an exam room, on a stretcher. ll1 07:11 Triage completed. ll1 07:12 Patient has correct armband on for positive identification. Bed in low position. Call [facility] light in reach. Pulse ox on. NIBP on. 07:33 Initial lab(s) drawn, by me, sent to lab. Inserted saline lock: 20 gauge in right dh3 antecubital area, using aseptic technique. Blood collected. 09:16 No provider procedures requiring assistance completed. ll1 09:30 No provider procedures requiring assistance completed. IV discontinued, intact, ll1 bleeding controlled, No redness/swelling at site. Pressure dressing applied. Administered Medications: 07:39 Drug: Zofran (Ondansetron) 4 mg Route: IVP; Site: right antecubital; 1 09:15 Follow up: Response: No adverse reaction 1 07:40 Drug: NS 0.9% 1000 ml Route: IV; Rate: 1 bolus; Site: right antecubital; 1 09:15 Follow up: Response: No adverse reaction; IV Status: Completed infusion; IV Intake: ll1 1000ml Medication: 07:12 VIS not applicable for this client. ll1 Intake: 09:15 IV: 1000ml; Total: 1000ml. 1 Outcome: 09:12 Discharge ordered by . rn 09:31 Patient left the ED. [facility] 09:31 Discharged to home ambulatory. 1 09:31 Condition: stable 09:31 Discharge instructions given to patient, Instructed on discharge instructions, follow up and referral plans. medication usage, Demonstrated understanding of instructions, follow-up care, medications, Prescriptions given X 1. Signatures: Quique Rouse MD MD rn Herrera, Deanna [facility] Noni Delcid RN RN ll1 Maureen Gupta
[2021-10-26 10:13] VITALS: O2SAT 100
[2021-10-26 10:15] VITALS: TEMP 99.1
[2021-10-26 10:16] VITALS: BP 111/86
== END 2021-10-26 09:31 | disposition home or self-care (01) ==
LOC: ER 06:40
DX: U07.1 COVID-19 (principal)
CPT/HCPCS: 36415; 80053; 83690; 85025; 87804; J2405; J7030; U0003

== ENCOUNTER 2022-12-20 18:14 | Emergency (ER) | payer SELFPAY ==
[2022-12-20] MEDS ORDERED: NA CHLORIDE 0.9% 1,000 ML ONE (18:39)
[2022-12-20 18:43] LABS: Absolute Lymphocytes (CBC) 1.9 K/uL (0.7-4.9); Hematocrit 45.6 % (39.6-49.0); Lymphocytes % 13.7 % (15.3-44.8); MCV 85.4 fL (80-100); MPV 7.6 fL (7.6-11.3); Platelets 257 thou/uL (152-406); RBC Red Blood Cell Count 5.34 M/uL (4.33-5.43)
[2022-12-20 19:06] LABS: Albumin 5.1 g/dL (3.4-5.0); Bilirubin Total 0.9 mg/dL (0.2-1.0); Potassium 3.4 mEq/L (3.5-5.1); Protein, Total 8.6 g/dL (6.4-8.2)
--- NOTE | 2022-12-20 20:32 | EDPHYS ---
Physician Documentation [facility] Name: Jony Flores Age: 32 yrs Sex: Male : 1990 Arrival Date: 12/20/2022 Time: 18:14 Bed 5 Private MD: ED Physician Tomi Sosa HPI: 12/21 00:09 This 32 yrs old Male presents to ER via Ambulatory with complaints of kb Nausea/Vomiting. 00:09 The patient has not experienced similar symptoms in the past. The patient has not kb recently seen a physician. 00:09 The patient presents to the emergency department with nausea, vomiting. Onset: The kb symptoms/episode began/occurred 2 day(s) ago. Possible causes: unknown. The symptoms are aggravated by nothing. The symptoms are alleviated by nothing. Associated signs and symptoms: Pertinent positives: nausea, vomiting. Severity of symptoms: At their worst the symptoms were mild moderate in the emergency department the symptoms are unchanged. Pt reports nausea, vomiting and decreased appetite for 2 days. Denies fever, chills, bodyaches, abd pain. Historical: - Allergies: 12/20 18:22 No Known Allergies; aa5 - PMHx: 18:22 Asthma; aa5 - PSHx: 18:22 None; aa5 - Immunization history:: Adult Immunizations unknown. - Social history:: Smoking status: Patient denies any tobacco usage or history of. ROS: 12/21 00:08 Constitutional: Negative for fever, chills, and weight loss. kb Abdomen/GI: Positive for nausea and vomiting, Negative for abdominal pain. All other systems are negative. Exam: 00:08 Constitutional: This is a well developed, well nourished patient who is awake, alert, kb and in no acute distress. Head/Face: Normocephalic, atraumatic. ENT: Moist Mucous membranes Cardiovascular: Regular rate and rhythm with a normal S1 and S2. No gallops, murmurs, or rubs. No pulse deficits. Respiratory: Respirations even and unlabored. No increased work of breathing. Talking in full sentences Abdomen/GI: Soft, non-tender. No distention Skin: Warm, dry with normal turgor. Normal color. MS/ Extremity: Pulses equal, no cyanosis. Neurovascular intact. Full, normal range of motion. Neuro: Awake and alert, GCS 15, oriented to person, place, time, and situation. Moves all extremities. Normal gait. Vital Signs: 12/20 18:21 BP 136 / 99; Pulse 92; Resp 16 S; Temp 98(TE); Pulse Ox 100% on R/A; Weight 70.31 kg aa5 (R); Height 6 ft. 0 in. (R); 20:45 BP 135 / 92; Pulse 86; Resp 16; Temp 98; Pulse Ox 100% on R/A; rv 18:21 Body Mass Index 21.02 (70.31 kg, 182.88 cm) aa5 Lyubov Coma Score: 20:45 Eye Response: spontaneous(4). Motor Response: obeys commands(6). Verbal Response: rv oriented(5). Total: 15. MDM: 18:22 Patient medically screened. kb 12/21 00:10 Differential diagnosis: Nonspecific abd pain, pancreatitis, appendicitis, kb diverticulitis, viral gastroenteritis. Data reviewed: vital signs, nurses notes. Test considered but Not performed: CT: CT abd considered, but pt has no abd tenderness, no reported abd pain, afebrile and nontoxic in appearance. Counseling: I had a detailed discussion with the patient and/or guardian regarding the historical points, exam findings, and any diagnostic results supporting the discharge/admit diagnosis, lab results, the need for outpatient follow up, a family practitioner, to return to the emergency department if symptoms worsen or persist or if there are any questions or concerns that arise at home. 12/20 18:27 Order name: CBC with Diff; Complete Time: 18:45 kb 12/20 18:27 Order name: CMP; Complete Time: 19:07 kb 12/20 18:27 Order name: Lipase; Complete Time: 19:07 kb 12/20 19:07 Order name: [place] Screen Profile; Complete Time: 20:25 kb 12/20 18:27 Order name: IV Saline Lock; Complete Time: 18:37 kb 12/20 18: Order name: Labs collected and sent; Complete Time: 18:37 kb Administered Medications: 12/20 18:37 Drug: NS 0.9% IV 1000 ml Route: IV; Rate: 1 bolus; Site: right antecubital; ph 20:48 Follow up: IV Status: Completed infusion; IV Intake: 1000ml rv Disposition Summary: 12/20/22 20:31 Discharge Ordered Location: Home kb Condition: Stable kb Diagnosis - Nausea with vomiting, unspecified kb Followup: kb - With: Emergency Department - When: As needed - Reason: Worsening of condition Followup: kb - With: Private Physician - When: 2 - 3 days - Reason: Recheck today's complaints, Continuance of care, Re-evaluation by your physician Discharge Instructions: - Discharge Summary Sheet kb - Nausea and Vomiting, Adult, Acum-ls-Ofue kb Forms: - Medication Reconciliation Form kb - Thank You Letter kb - Antibiotic Education kb - Prescription Opioid Use kb - Patient Portal Instructions kb - Leadership Thank You Letter kb Prescriptions: - Zofran 4 mg Oral Tablet - take 1 tablet by ORAL route every 6 hours As needed; 20 tablet; Refills: 0, kb Product Selection Permitted Signatures: Dispatcher [employer] EDMS Stacey Paz, MANAGER CLINICAL RESEARCH-C MANAGER CLINICAL RESEARCH-Ingrid Garcia, RN RN aa5 Haydee Duran RN RN Bryn Bird RN
--- NOTE | 2022-12-20 20:32 | ER ---
Nurse's Notes [facility] [place] Name: Jony Flores Age: 32 yrs Sex: Male : 1990 Arrival Date: 12/20/2022 Time: 18:14 Bed 5 Private MD: Diagnosis: Nausea with vomiting, unspecified Presentation: 12/20 18:21 Chief complaint: Patient states: "I haven't been able to eat since Monday because aa5 everything just comes back up and even water sometimes I throw it up". Coronavirus screen: vomiting. Ebola Screen: Patient denies travel to an Ebola-affected area in the 21 days before illness onset. Risk Assessment: Do you want to hurt yourself or someone else? Patient reports no desire to harm self or others. Onset of symptoms was November 2022. 18:21 Acuity: SHAHZAD 3 aa5 18:21 Method Of Arrival: Ambulatory aa5 18:27 Initial Sepsis Screen: Does the patient meet any 2 criteria? No. Patient's initial ph sepsis screen is negative. Does the patient have a suspected source of infection? No. Patient's initial sepsis screen is negative. Historical: - Allergies: 18:22 No Known Allergies; aa5 - PMHx: 18:22 Asthma; aa5 - PSHx: 18:22 None; aa5 - Immunization history:: Adult Immunizations unknown. - Social history:: Smoking status: Patient denies any tobacco usage or history of. Screenin:26 [facility] ED Fall Risk Assessment (Adult) History of falling in the last 3 months, ph including since admission No falls in past 3 months (0 pts) Confusion or Disorientation No (0 pts) Intoxicated or Sedated No (0 pts) Impaired Gait No (0 pts) Mobility Assist Device Used No (0 pt) Altered Elimination No (0 pt) Score/Fall Risk Level 0 - 2 = Low Risk Oriented to surroundings, Maintained a safe environment, Hourly rounding (assess needs \\T\\ fall precautionary measures) done. Abuse screen: Denies threats or abuse. Denies injuries from another. Nutritional screening: No deficits noted. Tuberculosis screening: No symptoms or risk factors identified. Assessment: 18:37 General: Appears in no apparent distress. comfortable, Behavior is calm, cooperative, ph appropriate for age. Pain: Denies pain. Neuro: Level of Consciousness is awake, alert, obeys commands, Oriented to person, place, time, situation. Cardiovascular: Capillary refill < 3 seconds in bilateral fingers Patient's skin is warm and dry. Respiratory: Airway is patent Respiratory effort is even, unlabored, Respiratory pattern is regular, symmetrical. GI: Abdomen is non-distended, Reports diarrhea, nausea, vomiting, Patient currently denies abdominal pain. Derm: Skin is intact, is healthy with good turgor, Skin is pink, warm \\T\\ dry. Vital Signs: 18:21 BP 136 / 99; Pulse 92; Resp 16 S; Temp 98(TE); Pulse Ox 100% on R/A; Weight 70.31 kg aa5 (R); Height 6 ft. 0 in. (R); 20:45 BP 135 / 92; Pulse 86; Resp 16; Temp 98; Pulse Ox 100% on R/A; rv 18:21 Body Mass Index 21.02 (70.31 kg, 182.88 cm) aa5 [place] Coma Score: 20:45 Eye Response: spontaneous(4). Motor Response: obeys commands(6). Verbal Response: rv oriented(5). Total: 15. ED Course: 18:17 Patient arrived in ED. im 18:21 Arm band placed on. aa5 18:22 [facility] P[facility]C [facility]. kb 18:22 Tomi Sosa DO is Attending Physician. kb 18:22 Triage completed. aa5 18:26 Haydee Duran, RN is Primary Nurse. ph 18:27 Patient has correct armband on for positive identification. Bed in low position. Call light in reach. Side rails up X 1. Pulse ox on. NIBP on. 18:37 Initial lab(s) drawn, by ED staff, sent to lab. Inserted saline lock: 22 gauge in right ph antecubital area, using aseptic technique. Blood collected. 20:45 No provider procedures requiring assistance completed. IV discontinued, intact, rv bleeding controlled, No redness/swelling at site. Pressure dressing applied. 20:47 Provided Education on: ZOFRAN. rv Administered Medications: 18:37 Drug: NS 0.9% IV 1000 ml Route: IV; Rate: 1 bolus; Site: right antecubital; ph 20:48 Follow up: IV Status: Completed infusion; IV Intake: 1000ml rv Medication: 18:27 VIS not applicable for this client. ph Intake: 20:48 IV: 1000ml; Total: 1000ml. rv Outcome: 20:31 Discharge ordered by . vivi 20:47 Discharged to home ambulatory, with family. rv 20:47 Condition: good 20:47 Discharge instructions given to patient, Instructed on discharge instructions, follow up and referral plans. medication usage, Demonstrated understanding of instructions, follow-up care, medications, Prescriptions given X 1. 20:48 Patient left the ED. rv Signatures: Stacey Paz, [employer]ECTIVE [employer]-C DETECTIVE [employer]CTION-Ingrid Garcia, RN RN aa5 Haydee Duran RN RN Bryn iBrd RN RN rv January Bernabe
[2022-12-20 21:11] VITALS: TEMP 98; O2SAT 100
[2022-12-20 21:13] VITALS: BP 135/92
== END 2022-12-20 20:48 | disposition home or self-care (01) ==
LOC: ER 18:14
DX: R11.2 Nausea with vomiting, unspecified (principal)
CPT/HCPCS: 36415; 80053; 83690; 85025; 86308; 96360; 96361; 99284; J7030